=== PATIENT | female | born 1965 | race Caucasian/White ===

== ENCOUNTER → 2023-08-06 14:20 | Outpatient (REF) | payer OTHER, SELFPAY | LOC: PAVMRI 14:20 | PROVIDERS: ATTENDING PHYSICIAN Nurse Practitioner Family; FAMILY PHYSICIAN Family Medicine | DX: K86.9 Disease of pancreas, unspecified (principal) | CPT/HCPCS: 74183; A9575 ==

== ENCOUNTER → 2023-10-14 11:38 | Outpatient (REF) | payer OTHER, SELFPAY | LOC: RAD 11:38 | PROVIDERS: ATTENDING PHYSICIAN Family Medicine | DX: M25.561 Pain in right knee (principal) | CPT/HCPCS: 73564 ==

== ENCOUNTER → 2024-01-12 13:09 | Outpatient (REF) | payer OTHER, SELFPAY | LOC: RAD 13:09 | PROVIDERS: ATTENDING PHYSICIAN Family Medicine | DX: E07.9 Disorder of thyroid, unspecified (principal) | CPT/HCPCS: 76536 ==

== ENCOUNTER → 2024-01-15 14:50 | Outpatient (REF) | payer OTHER, SELFPAY | LOC: WDC 14:50 | PROVIDERS: ATTENDING PHYSICIAN Family Medicine | DX: Z12.31 Encounter for screening mammogram for malignant neoplasm of breast (principal) | CPT/HCPCS: 77063; 77067 ==

== ENCOUNTER → 2024-02-03 11:20 | Outpatient (REF) | payer OTHER, SELFPAY | LOC: HWRAD 11:20 | PROVIDERS: ATTENDING PHYSICIAN Nurse Practitioner Adult Health; FAMILY PHYSICIAN Family Medicine | DX: R14.0 Abdominal distension (gaseous) (principal); Z98.890 Other specified postprocedural states | CPT/HCPCS: 76705 ==

== ENCOUNTER → 2024-09-12 12:05 | Outpatient (REF) | payer OTHER, SELFPAY | LOC: PAVMRI 12:05 | PROVIDERS: ATTENDING PHYSICIAN Internal Medicine Gastroenterology; FAMILY PHYSICIAN Family Medicine | DX: K86.9 Disease of pancreas, unspecified (principal) | CPT/HCPCS: 74183; A9575 ==

== ENCOUNTER → 2025-02-27 12:32 | Outpatient (REF) | payer OTHER, SELFPAY | LOC: HWWDC 12:32 | PROVIDERS: ATTENDING PHYSICIAN Obstetrics & Gynecology; FAMILY PHYSICIAN Family Medicine | DX: Z12.31 Encounter for screening mammogram for malignant neoplasm of breast (principal) | CPT/HCPCS: 77063; 77067 ==